=== PATIENT | male | born 1980 | race Caucasian/White ===

== ENCOUNTER 2016-04-22 11:29 | Outpatient (CLI) | payer OTHER | END 2016-04-22 11:30 | disposition home or self-care (01) | DX: G47.10 Hypersomnia, unspecified (principal); G47.8 Other sleep disorders; R06.83 Snoring ==

== ENCOUNTER 2016-05-24 22:20 | Outpatient (CLI) | payer OTHER | END 2016-05-24 22:21 | disposition home or self-care (01) | LOC: SC 22:20 | PROVIDERS: ATTEND Internal Medicine Pulmonary Disease | DX: G47.10 Hypersomnia, unspecified (principal); G47.8 Other sleep disorders | CPT/HCPCS: 95810 ==

== ENCOUNTER 2016-06-04 10:09 | Outpatient (CLI) | payer OTHER | END 2016-06-04 10:10 | disposition home or self-care (01) | LOC: SC 10:09 | PROVIDERS: ATTEND Internal Medicine Pulmonary Disease | DX: G47.10 Hypersomnia, unspecified (principal); R06.83 Snoring | CPT/HCPCS: 99212; 99213 ==

== ENCOUNTER 2022-09-26 11:37 | Emergency (ER) | payer OTHER ==
[2022-09-26] MEDS ORDERED: SODIUM CHLORIDE 0.9% 1,000 ML IV STA (12:06)
--- NOTE | 2022-09-26 12:08 | ED Physician Documentation ---
History of Present Illness - Stated complaint Stated Complaint: ABD PX - Chief complaint Chief Complaint: Abd Pain - Additonal information Additional information: 41-year-old male presents to the emergency department for evaluation of 5 days generalized abdominal discomfort. Reports that he feels generally bloated. He thought he might be constipated so he took a stool softener for several days. Since then he has started to have some soft and liquid bowel movements but still continues to feel bloated. No fevers. No nausea or vomiting. Tenderness is not focal. He has no pertinent past surgical history. Past medical history most significant for hypertension. He does smoke as well as use alcohol moderately though none for several weeks. Review of Systems Constitutional: denies: Fever Cardiac: reports: Reviewed and negative Respiratory: reports: Reviewed and negative GI: reports: Abdominal Pain, Constipation : reports: Reviewed and negative Skin: reports: Reviewed and negative Neurologic: reports: Reviewed and negative PD PAST MEDICAL HISTORY - Present Medications Home Medications: Ambulatory Orders Medication Instructions Recorded Confirmed Amox/Clav 875/125 [Augmentin] 1 each PO Q12H #14 tablet 09/26/22 - Allergies Allergies/Adverse Reactions: Allergies Allergy/AdvReac Type Severity Reaction Status Date / Time No Known Drug Allergies Allergy Verified 09/26/22 11:52 PD ED PE NORMAL - General General: Alert and oriented X 3, No acute distress, Well developed/nourished - HEENT HEENT: Atraumatic - Cardiac Cardiac: RRR, No murmur - Respiratory Respiratory: No respiratory distress, Clear bilaterally - Abdomen Abdomen: Normal bowel sounds, Soft. No: Non tender (Very mild generalized abdominal tenderness though nonfocal and no guarding or rebound.) - Back Back: No CVA TTP - Derm Derm: Normal color, Warm and dry, No rash - Extremities Extremities: No deformity - Neuro Neuro: Alert and oriented X 3 Eye Opening: Spontaneous Motor: Obeys Commands Verbal: Oriented GCS Score: 15 Results - Vitals Vitals: Vital Signs - 24 hr 09/26/22 09/26/22 09/26/22 11:49 12:45 14:26 Temperature 36.8 C Heart Rate 124 H 93 Respiratory 16 19 20 Rate Blood Pressure 143/107 H 131/90 H O2 Saturation 97 100 Oxygen O2 Source Room air - Labs Labs: Laboratory Tests 09/26/22 09/26/22 09/26/22 12:53 12:53 13:53 WBC 15.7 H RBC 5.45 Hgb 15.0 Hct 43.8 MCV 80.4 MCH 27.5 MCHC 34.2 RDW 12.2 Plt Count 483 H MPV 9.5 Neut # (Auto) 12.2 H Lymph # (Auto) 1.8 [place] # (Auto) 1.6 H Eos # (Auto) 0.1 Baso # (Auto) 0.1 Absolute Nucleated RBC 0.00 Band Neuts % (Manual) Not Reportable Abnorm Lymph % (Manual) Not Reportable Nucleated RBC % 0.0 Neutrophils # (Manual) Not Reportable Lymphocytes # (Manual) Not Reportable Monocytes # (Manual) Not Reportable Eosinophils # (Manual) Not Reportable Basophils # (Manual) Not Reportable Differential Comment MANUAL=AUTO DIFF Manual Slide Review Indicated WBC Morphology NORMAL APPEARANCE Platelet Estimate INCREASED (>450,000) Platelet Morphology NORMAL APPEARANCE RBC Morph Micro Appear NORMAL APPEARANCE Sodium 134 L Potassium 3.4 L Chloride 93 L Carbon Dioxide 29 Anion Gap 12.0 BUN 17 Creatinine 0.9 Estimated GFR (MDRD) 92 Glucose 221 H Calcium 10.1 Total Bilirubin 1.0 AST 14 ALT 28 Alkaline Phosphatase 69 Total Protein 8.7 H Albumin 4.0 Globulin 4.7 H Albumin/Globulin Ratio 0.9 L Lipase 25 Urine Color YELLOW Urine Clarity CLEAR Urine pH 6.0 Ur Specific [place] 1.025 Urine Protein NEGATIVE Urine Glucose (UA) 250 H Urine Ketones 40 H Urine Occult Blood TRACE-INTA Urine Nitrite NEGATIVE Urine Bilirubin NEGATIVE Urine Urobilinogen 0.2 (NORMAL) Ur Leukocyte Esterase NEGATIVE Ur Microscopic Review NOT INDICATED Urine Culture Comments NOT INDICATED - Rads (name of study) Ct abd Relevant Findings:: Final report received (Mild diffuse colonic wall thickening concerning for low-grade infectious or inflammatory colitis. No bowel obstruction. No abscess collection. No free fluid or free air. Mild sigmoid diverticulosis without evidence of focal diverticulitis. Hepatic steatosis no discrete hepatic lesions) PD Medical Decision Making - ED course Complexity details: reviewed results, re-evaluated patient, considered differential, d/w patient ED course: 41-year-old male presents emergency department for evaluation of several days generalized abdominal discomfort and bloating. He has been having loose stools. No fevers. No melena or hematochezia. On exam there was some mild tenderness but no guarding or rebound. Labs were obtained that included CBC, electrolytes and urinalysis. Per my interpretation there is a mild leukocytosis with white count over 15,000. His electrolytes however show a blood glucose of 221. Given his age and obesity I suspect that this likely represents the development of diabetes. CT of the abdomen was completed and it does show diffuse colonic wall thickening concerning for infectious or inflammatory colitis. Given the abdominal di scomfort and the leukocytosis patient will be started on Augmentin twice daily for the next week. Incidental finding in the CT scan also included hepatic steatosis. I am advising the patient to follow closely with Dr. Justin. He would likely benefit from referral for colonoscopy as well as further evaluation of the hyperglycemia likely indicating the development of type 2 diabetes. I discussed with patient the usual emergent return precautions for failure of the symptoms to resolve or worsen. Departure - Departure Disposition: 01 Home, Self Care Clinical Impression: Hyperglycemia, Colitis, Hepatic steatosis Condition: Stable Record reviewed to determine appropriate education?: Yes Follow-Up: Greg Justin MD [Primary Care Provider] - Prescriptions: Amox/Clav 875/125 [Augmentin] 1 each PO Q12H #14 tablet Comments: Faheem you were seen today in the emergency department because for several days you have been having some generalized abdominal discomfort and bloating as well as diarrhea. Your labs today show that you have an elevated blood glucose of 221. Given your age and obesity I suspect that this likely represents the development of type 2 diabetes. It is very important that you discuss this concern with Dr. Justin. Further outpatient testing is likely indicated as well as the initiation of medications for blood sugar control. The CT scan today showed diffuse colonic wall thickening concerning for colitis. In order to manage this I like to start you on Augmentin that you will take twice daily for the next week. [place] For the next 24 to 48 hours I recommend a clear liquid diet. As your abdominal discomfort and bloating begins to improve then you can advance your diet with bananas, rice, applesauce and toast. With the new finding of colitis and abdominal pain you should be referred for a screening colonoscopy. This is something Dr. Justin will need to do. Return to the emergency department if you find that you are having worsening symptoms, develop any fevers, have black or bloody stools or uncontrolled vomiting. In general I recommend the use of Tylenol or ibuprofen [id number] for your discomfort.
[2022-09-26] MEDS ORDERED: ONDANSETRON 4 MG/2 ML VIAL IVP STA (12:26)
[2022-09-26] MEDS ORDERED: KETOROLAC 30 MG/ML VIAL IVP STA (12:39)
[2022-09-26 13:02] LABS: BASOPHILS # (AUTO) 0.1 10^3/uL (0.0-0.1); BASOPHILS % (AUTO) 0.5 %; EOSINOPHILS # (AUTO) 0.1 10^3/uL (0.0-0.7); EOSINOPHILS % (AUTO) 0.4 %; HCT - HEMATOCRIT 43.8 % (42.0-52.0); LYMPHOCYTES # (AUTO) 1.8 10^3/uL (1.5-3.5); LYMPHOCYTES % (AUTO) 11.2 %; MEAN CORPUSCULAR HEMOGLOBIN 27.5 pg (27.0-31.0); MEAN CORPUSCULAR HGB CONC 34.2 g/dL (32.0-36.0); MEAN CORPUSCULAR VOLUME 80.4 fL (80.0-94.0); MEAN PLATELET VOLUME 9.5 fL (7.4-11.4); MONOCYTES # (AUTO) 1.6 10^3/uL (0.0-1.0); NEUTROPHILS # (AUTO) 12.2 10^3/uL (1.5-6.6); NEUTROPHILS % (AUTO) 77.6 %; PLT - PLATELET COUNT 483 10^3/uL (130-450); RED BLOOD COUNT 5.45 10^6/uL (4.70-6.10); RED CELL DISTRIBUTION WIDTH 12.2 % (12.0-15.0); WHITE BLOOD COUNT 15.7 x10^3/uL (4.8-10.8)
[2022-09-26 13:05] LABS: SLIDE REVIEW? Indicated
[2022-09-26 13:28] LABS: DIFFERENTIAL COMMENT MANUAL=AUTO DIFF; PLATELET ESTIMATE, MANUAL INCREASED (>450,000) (NORMAL); PLATELET MORPHOLOGY NORMAL APPEARANCE (NORMAL); RBC MORPHOLOGY (MULTIPLE) NORMAL APPEARANCE (NORMAL); WBC MORPHOLOGY (MULTIPLE) NORMAL APPEARANCE (NORMAL)
[2022-09-26 13:30] LABS: ALBUMIN/GLOBULIN RATIO 0.9 (1.0-2.2); CALCIUM 10.1 mg/dL (8.5-10.3); CREATININE 0.9 mg/dL (0.6-1.2); POTASSIUM 3.4 mmol/L (3.5-5.0); TOTAL PROTEIN 8.7 g/dL (6.7-8.2)
[2022-09-26] MEDS ORDERED: iohexoL-300 100 ML VIAL ONE (13:39)
[2022-09-26 14:06] LABS: GLUCOSE, URINE (UA) 250 mg/dL (NEGATIVE); KETONES,URINE (UA) 40 mg/dL (NEGATIVE); LEUKOCYTE ESTERASE, URINE NEGATIVE (NEGATIVE); NITRITE,URINE NEGATIVE (NEGATIVE); OCCULT BLOOD,URINE TRACE-INTA (NEGATIVE); PROTEIN,URINE NEGATIVE (NEGATIVE); UROBILINOGEN,URINE 0.2 (NORMAL) E.U./dL (NORMAL)
[2022-09-26 14:07] LABS: CLARITY,URINE CLEAR (CLEAR)
[2022-09-26 14:10] LABS: BILIRUBIN,URINE NEGATIVE (NEGATIVE); ICTOTEST,URINE NEGATIVE
[2022-09-26] MEDS ORDERED: iohexoL-300 100 ML VIAL IVP ONE (14:21)
--- NOTE | 2022-09-26 14:52 | CT Report ---
PROCEDURE: ABDOMEN/PELVIS W INDICATIONS: Abdominal pain, acute, nonlocalized CONTRAST: 100mL Omni 300 TECHNIQUE: After the administration of IV contrast, 5 mm thick sections acquired from the diaphragms to the symp hysis. 5 mm thick coronal and sagittal reformats were acquired. For radiation dose reduction, the f ollowing was used: automated exposure control, adjustment of mA and/or kV according to patient size. COMPARISON: None FINDINGS: Image quality: Excellent. Lung bases and heart: Unremarkable. Liver: No solid mass. Hepatic steatosis is seen. Gallbladder and biliary tree: Gallbladder is within normal limits. No biliary dilatation. Spleen: No splenomegaly. Pancreas: No pancreatic ductal dilation. Adrenals: No adrenal nodule. Kidneys and ureters: No hydronephrosis. No renal cystic lesion which requires follow up. No solid mas s. Bowel and peritoneum: There is no bowel obstruction. No gross gastric or small bowel wall thickening. Mild diffuse colonic wall thickening is noted. No abscess collection. No free fluid of free air. Mil d sigmoid diverticulosis is also seen. Lymph nodes: No central or retroperitoneal adenopathy. Vessels: No infrarenal aortic aneurysm. PELVIS Reproductive organs: Unremarkable. Bladder: No abnormal wall thickening, accounting for underdistension. Pelvic lymph nodes: No pelvic adenopathy by size criteria. Bones: No aggressive osseous abnormality. Other: No significant ventral or inguinal hernia. IMPRESSION: 1. Mild diffuse colonic wall thickening concerning for low-grade infectious or inflammatory colitis. No bowel obstruction. No abscess collection. No free fluid of free air. Mild sigmoid diverticulosis w ithout CT evidence of acute focal diverticulitis. 2. Hepatic steatosis, no discrete hepatic lesion. Reviewed by: Arnel Guy MD on 09/26/2022 2:51 PM PDT Approved by: Arnel Guy MD on 09/26/2022 2:51 PM PDT Station ID: [id number]
[2022-09-26 15:20] VITALS: BP 135/89
== END 2022-09-26 15:20 | disposition home or self-care (01) ==
LOC: ED 11:37
DX: K52.9 Noninfective gastroenteritis and colitis, unspecified (principal); K76.0 Fatty (change of) liver, not elsewhere classified; R73.9 Hyperglycemia, unspecified; F17.200 Nicotine dependence, unspecified, uncomplicated
CPT/HCPCS: 36415; 74177; 80053; 81003; 83690; 85025; 96374; 99284; Q9967; 81001; 87086